=== PATIENT | male | born 1965 | race Caucasian/White ===

== ENCOUNTER 2017-08-03 13:12 | Inpatient (IN) | payer OTHER ==
[2017-08-03] VITALS (7 sets, daily range): BP systolic 127–160; BP diastolic 85–110
[~2017-08-03] VITALS: Ht 185.4 cm; Wt 105.2 kg
--- NOTE | ~2017-08-03 | EKG ---
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 : 1965 Requested By: Donovan Franklin Order Number: [id number] MD: Keon Thao Measurements Intervals [place] Rate: 85 P: 2 CA: 165 QRS: -24 QRSD: 101 T: -25 QT: 365 QTc: 434 Interpretive Statements Sinus rhythm Borderline left axis deviation Probable anteroseptal infarct, old Repol abnrm suggests ischemia, diffuse leads ST elevation, lateral leads, acute injury Baseline wander in lead(s) V4 No previous ECG available for comparison Electronically Signed On 08-07-2017 13:01:13 CDT by Keon Thao [email or web address] <ELECTRONICALLY SIGNED> By: Keon Thao MD, [facility] 08/07/17 1301 1407 1407 Keon Thao MD, [facility] /EPI
--- NOTE | ~2017-08-03 | HC ---
[facility] [place] [address] CONSULTATION Name: CINTHIA ROMANO Room #: 209-P [facility] IN M.R.#: [id number] Admission: 08/03/17 Attend Phys: Shane Whittaker MD Discharge: 08/05/17 Date of : 69 Report #: [id number] THIS REPORT FOR: //name// CC: Shane Whittaker HISTORY OF PRESENT ILLNESS: A 51-year-old male patient who I was asked to evaluate here in the Emergency Room. He initially presented with some chest pain. He drove himself over to the Emergency Room. No real associated symptoms. He is having 3 or 4 episodes of this since Tuesday, although denies any real change in exercise tolerance. He is not very active. Strong family history for coronary artery disease, mother had an event around age 50. The patient is 51. He does not take any blood pressure, cholesterol medicines. He believes there was a cholesterol check sometime in the last year. Denies PND, orthopnea. There has been no syncope or presyncope. He initially became pain free in the Emergency Room and then had pain and come back. The repeat EKG initially had showed some subtle ST abnormalities in inferior leads, but then there was a subtle ST elevation in 1 and aVL, less noted with worsening depression in V3 and V4. So somewhat of a posterolateral infarct pattern. Brought emergently to the catheterization lab after heparin bolus and Lipitor and aspirin were given. Minimal discomfort here in the catheterization lab. MEDICATIONS: He takes no current medications. PAST MEDICAL HISTORY: He has had bilateral hip replacements and has had a recent arthroscopy. No other real serious illnesses. No hypertension or hypercholesterolemia by history. SOCIAL HISTORY: He is with children. Minimal alcohol, no tobacco. 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 FAMILY HISTORY: Strongly positive for premature coronary disease. Mother had an event around age 50. REVIEW OF SYSTEMS: Essentially negative except for the intermittent hip pain and some occasional nocturia. PHYSICAL EXAMINATION: VITAL SIGNS: Blood pressure was 140/98, pulse was 80s and regular. HEENT: Eyes reveal xanthelasmas. Pharynx is clear. NECK: Shows preserved upstrokes without JVD or bruits. LUNGS: Clear. CARDIAC: Regular rate and rhythm, S1, S2. No murmur or gallop. ABDOMEN: Soft. No HSM or abdominal bruit. EXTREMITIES: Reveal no edema. Distal pulses were intact. NEUROLOGIC: Nonfocal. SKIN: Warm and dry without xanthoma or ulcer. MUSCULOSKELETAL: No gross joint deformity. [facility] [address] [place] [address] CONSULTATION Name: CINTHIA ROMANO Room #: 209-P [facility] IN [facility].#: [id number] Admission: 08/03/17 Attend Phys: Shane Whittaker MD Discharge: 08/05/17 Date of : [birth year] Report #: [id number] ASSESSMENT: 1. Acute posterolateral myocardial infarction (stuttering). 2. Suspected hypercholesterolemia. 3. Strong family history of premature coronary artery disease. 4. History of bilateral total hip replacement. RECOMMENDATIONS AND PLAN: We will proceed emergently to catheterization lab to delineate the anatomy and intervention as indicated. Risks, benefits, alternatives were discussed with the patient. We will proceed urgently. LABORATORY WORK: H and H are 15.7 and 46.7. Sodium 141, potassium 4.2, creatinine 1.0. LFTs appear to be normal. Troponin is 2.14. BNP is 371. <ELECTRONICALLY SIGNED> By: Joaquin Macedo MD, FACC 08/11/17 1539 1535 2221 Joaquin Macedo MD, FACC /nt
--- NOTE | ~2017-08-03 | CATHLAB ---
[facility] [place] [address] INVASIVE PROCEDURE REPORT Name: CINTHIA ROMANO Room #: 209-P DIS IN M.R.#: [id number] Admission: 08/03/17 Attend Phys: Russell Dee Discharge: 08/05/17 Date of : 69 Date of Service: 08/06/17 1310 Report #: [id number] THIS REPORT FOR: //name// APPROVED REPORT Study performed: 08/03/2017 14:29:40 Patient Details Patient Status: ED Room #: The patient is a 51 year-old male Event Personnel Joaquin Macedo Tool Pusher, Bam Ocasio RN RN, Haley Murillo Sandifer, David Monitor, Jae Palmer forestry foreman Performed Left Heart Cath w/or w/o Coronaries [id number] [facility] Aortogram Abdominal Peripheral Angio 239000 FRITZ Revasc AMI Total/Sub Single CIRC C9606 AMIREVSING Indication Unstable angina Procedure Narrative The Right Groin^ was infiltrated with 1% Lidocaine subcutaneous anesthesia. A PINNACLE 6FR Sheath #[id number] sheath was inserted into the RFA^. Coronary angiography was performed using coronary diagnostic catheters. The right coronary system was accessed and visualized with a JR4 catheter. The left coronary system was accessed and visualized with a JL4 catheter. The left ventricle was accessed and visualized with a PIGTAIL catheter. Left ventriculogram was performed in 30 degree projection. An aortogram of the abdominal aorta was performed. Closure device was deployed with a 6 Fr MYNX. The patient tolerated the procedure well and there were no complications associated with the procedure. There was no hematoma. Intraoperative Conscious Sedation Sedation start time: 14.52 Case end Time: 15, 20 Fentanyl 25 mcg Versed 1 mg Fluoro Time: 7.22 minutes Dose: 1488 mGy [facility] [place] [address] INVASIVE PROCEDURE REPORT Name: CINTHIA ROMANO Room #: 209-P [facility] IN M.R.#: [id number] Admission: 08/03/17 Attend Phys: Russell Dee Discharge: 08/05/17 Date of : 69 Date of Service: 08/06/17 1310 Report #: [id number] Contrast Type and Amount: Omnipaque 190 ml Hemodynamics The aortic pressure is 147/100 mmHg with a mean of 116 mmHg. The left ventricular pressure is 156/7 mmHg with a mean of mmHg. PCI Technique Lesion Percutaneous coronary intervention was performed on the mid circumflex artery segment. A LAUNCHER 6FR EBU 4 #[id number] Guide Catheter was used to engage the LCA ostium. A Luge Wire .014 x 182CM #[id number] Interventional Guidewire was used to cross the lesion. BALLOON DILATION A Balloon catheter Sprinter OTW 3.0 x 15 #[id number] was inserted and inflated up to 10.00atm for 21seconds. Additional Inflation: 12.00atm for 20seconds. STENT DEPLOYMENT A drug-eluting stent RESOLUTE OTW 3.0 X 15 #[id number] was inserted and inflated up to 13.00atm for 38seconds. Additional Inflation: 18.00atm for 23seconds. Conclusion #1 successful PTCA stent of the proximal circumflex artery moderate sized infarct vessel 99% to 0% with a 30 by 15 resolute drug-eluting stent postdilated 3.3 mm religious of normal KENYA grade 3 flow #2 left main free of disease giving rise to LAD and circumflex #3 the LAD is moderately disease 4050% proximal lesion off the left main and then a mid vessel lesion of 60-70% (will follow) extends to the apex with mild disease #4 large dominant right coronary artery with no occlusive disease #5 normal left ventricular size with subtle lateral wall leg EF 50-55% #6 normal abdominal aorta no evidence of aneurysm normal caliber single bilateral renal arteries and iliac system widely patent Recommendations and plan: Patient is markedly improved hemodynamically stable. Pain-free we'll transport to CCU to follow post stent/infarct protocol. Continue dual antiplatelet therapy. [facility] [address] [place] [address] INVASIVE PROCEDURE REPORT Name: CINTHIA ROMANO Room #: 209-P [facility] IN M.R.#: [id number] Admission: 08/03/17 Attend Phys: Russell Dee Discharge: 08/05/17 Date of : 69 Date of Service: 08/06/17 1310 Report #: [id number] Integrilin drip to be maintained for 2 bottles. Minx closure device utilized without any groin complication. Follow post stent protocol <ELECTRONICALLY SIGNED> By: Joaquin Macedo MD, FACC 08/06/171309 09 09 Joaquin Macedo MD, FACC /INF
--- NOTE | ~2017-08-03 | D ---
[facility] [place] [address] DISCHARGE SUMMARY Name: CINTHIA ORMANO Room #: 209-P [facility] IN M.R.#: [id number] Admission: 08/03/17 Attend Phys: Shane Whittaker MD Discharge: 08/05/17 Date of : 69 Report #: [id number] THIS REPORT FOR: //name// CC: Shane Whittaker DATE OF SERVICE: 08/05/2017 FINAL DIAGNOSES: 1. ST segment elevation myocardial infarction. 2. Coronary artery disease. 3. Hypertension. 4. Dyslipidemia. PROCEDURES: Cardiac catheterization. HOSPITAL COURSE: The patient was admitted with chest pain and studies revealing ST segment elevation myocardial infarction. He was taken to the lab head by Dr. Macedo and a stent placed in, I believe, circumflex. There was also noted 60% LAD lesion that will be monitored and managed as an outpatient, had no other interval complications and was treated medically. PHYSICAL EXAMINATION: On the day of discharge: GENERAL: He was awake and alert. VITAL SIGNS: Stable. Blood pressure was ranging 128/81-144/95. LUNGS: Clear. HEART: Regular. ABDOMEN: Soft, normoactive bowel sounds. EXTREMITIES: No edema. DISPOSITION: He will be discharged to home with cardiac diet. ACTIVITY: As tolerated. Follow up with Dr. Whittaker in August as scheduled and Dr. Macedo in 1-2 weeks. Medications will be aspirin 325 mg a day, Lipitor 80 mg a day, Cozaar 100 mg daily, Toprol-XL 50 mg a day and Brilinta 90 mg twice a day. <ELECTRONICALLY SIGNED> By: Gerardo Carter MD 08/09/17 0948 0931 1004 Gerardo Carter MD /nt
--- NOTE | ~2017-08-03 | H ---
[facility] [place] [address] HISTORY AND PHYSICAL Name: CINTHIA ROMANO Room #: 209-P ADM IN M.R.#: [id number] Admission: 08/03/17 Attend Phys: Shane Whittaker MD Discharge: Date of : 69 Report #: [id number] THIS REPORT FOR: //name// CC: Shane Whittaker DATE OF SERVICE: 08/03/2017 CHIEF COMPLAINT: Chest pain. HISTORY OF PRESENT ILLNESS: The patient is a 51-year-old gentleman who presented to the Emergency Room with chest pain. He has had intermittent episodes of chest pain lasting about 10 minutes for the last 2 days. Pain is in the center of his chest with radiation to the left arm. He denied any associated nausea, diaphoresis or shortness of breath. He has had no prior symptoms. Lab and EKG in the ER is consistent with acute myocardial infarction and yesterday he was taken emergently to the cemetery laborer by Dr. Macedo. PAST MEDICAL HISTORY: None. PAST SURGICAL HISTORY: None. FAMILY HISTORY: Noncontributory. SOCIAL HISTORY: No chronic alcohol or tobacco use. ALLERGIES: None. MEDICATIONS: None. REVIEW OF SYSTEMS: Prior to this, he was denying any headache, chest pain, shortness of breath, abdominal pain, nausea, vomiting, diarrhea, constipation, dysuria or syncope. OBJECTIVE: VITAL SIGNS: Temperature 36.8, pulse ____, respirations 18, blood pressure 153/105. GENERAL: He is awake and alert, in no distress. HEAD AND NECK: Unremarkable. LUNGS: Clear. HEART: Regular. ABDOMEN: Soft and normoactive bowel sounds. EXTREMITIES: No edema. NEUROLOGIC: Intact. LAB: Reviewed. I discussed the findings with Dr. Macedo. [facility] [address] [place] [address] HISTORY AND PHYSICAL Name: CINTHIA ROMANO Room #: 209-P ADM IN M.R.#: [id number] Admission: 08/03/17 Attend Phys: Shane Whittaker MD Discharge: Date of : 69 Report #: [id number] ASSESSMENT: 1. Acute myocardial infarction with ST segment elevation. 2. Coronary artery disease. 3. Hypertension. 4. Dyslipidemia. PLAN: At this point, medical management will continue and we will follow recommendations and lead of Dr. Macedo. <ELECTRONICALLY SIGNED> By: Gerardo Carter MD 08/05/17 0928 0938 0956 Gerardo Carter MD /nt
--- NOTE | ~2017-08-03 | EKG ---
[place] [address] [facility] [place] [address] ELECTROCARDIOGRAM REPORT Name: CINTHIA ROMANO Room #: 209-P [facility] IN M.R.#: [id number] Admission: 08/03/17 Attend Phys: Shane Whittaker MD Discharge: 08/05/17 Date of : 69 Report #: [id number] THIS REPORT FOR: //name// 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 : 1965 Requested By: Donovan Franklin Order Number: [id number] MD: Keon Thao Measurements Intervals [place] Rate: 88 P: -13 AR: 170 QRS: 55 QRSD: 96 T: 78 QT: 374 QTc: 453 Interpretive Statements Sinus rhythm Borderline low voltage, extremity leads Anteroseptal infarct, old No previous ECG available for comparison Electronically Signed On 08-07-2017 12:56:42 CDT by Keon Thao [email or web address] <ELECTRONICALLY SIGNED> By: Keon Thao MD, [facility] 08/07/17 1256 1319 1319 Keon Thao MD, [facility] /EPI
[2017-08-03 13:42] LABS: ABSOLUTE NEUTROPHILS 4.6 thou/uL (1.4-8.2); BASOPHILS 0.6 % (0.0-2.0); EOSINOPHILS 0.5 % (0.0-3.0); HEMATOCRIT 46.7 % (42.0-52.0); HEMOGLOBIN 15.7 gm/dL (14.0-18.0); LYMPHOCYTES 32.1 % (24.0-44.0); MCH 27.2 pg (26.0-34.0); MCHC 33.7 g/dL (28.0-37.0); MCV 80.6 fL (80.0-100.0); MONOCYTES 7.2 % (1.0-8.0); PLATELET COUNT 232 thou/uL (150-400); POLYS 59.6 % (36.0-66.0); RBC 5.79 mil/uL (4.50-6.00); RDW 14.2 % (10.5-14.5); WBC 7.8 thou/uL (4.0-11.0)
[2017-08-03 13:54] LABS: CALCIUM 9.4 mg/dL (8.5-10.1); POTASSIUM 4.2 mmol/L (3.5-5.1)
[2017-08-03 14:02] LABS: MAGNESIUM 2.1 mg/dL (1.8-2.4); TOTAL BILIRUBIN 0.7 mg/dL (<0.1-1.0); TOTAL PROTEIN 7.6 g/dL (6.4-8.2)
[2017-08-03 14:05] LABS: TROPONIN-I 2.14 ng/mL (<0.06)
[2017-08-04 00:10] VITALS: BP 134/98
[2017-08-04 02:41] LABS: CHOLESTEROL 191 mg/dL (<200); HDL CHOLESTEROL 32 mg/dL (>40); LDL CHOLESTEROL 103 mg/dL (<100); TRIGLYCERIDE 283 mg/dL (<150); VLDL 57 mg/dL (<40)
[2017-08-04 02:42] LABS: SERUM ASSESSMENT Clear
[2017-08-04 04:47] VITALS: BP 135/94
[2017-08-04 07:58] VITALS: BP 153/105
[2017-08-04 11:22] VITALS: BP 127/85
[2017-08-04 16:44] VITALS: BP 128/81
[2017-08-04 19:17] VITALS: BP 133/82
[2017-08-05 05:20] VITALS: BP 120/76
[2017-08-05 08:03] VITALS: BP 141/95
[2017-08-05] MEDS ORDERED: ATORVASTATIN CA40 MG PO (08:45)
[2017-08-05] MEDS ORDERED: PLAVIX 75 MG TA75 M1 PO (08:45)
[2017-08-05] MEDS ORDERED: METOPROLOL SUCC50 MG PO (08:45)
[2017-08-05] MEDS ORDERED: COZAAR100 MG PO (08:45)
[2017-08-05] MEDS ORDERED: ASPIRIN325 PO ×2 (08:45→08:49)
[2017-08-05] MEDS ORDERED: BRILINTA90 MG PO (08:49)
[2017-08-05 10:17] VITALS: BP 144/95
== END 2017-08-05 11:20 | disposition home or self-care (01) | DRG 247 ==
LOC: ER 13:12 → 2N 14:25 → EROBS 14:25 → 2N 14:33 → ENTRNSPT 08-05 10:51 → EDTRNSPTSTS 08-05 11:04 → 2N 08-05 11:20
PROVIDERS: Emergency Medicine; Internal Medicine Cardiovascular Disease
DX: I21.3 ST elevation (STEMI) myocardial infarction of unspecified site (principal); I25.10 Atherosclerotic heart disease of native coronary artery without angina pectoris; Z96.643 Presence of artificial hip joint, bilateral; I10 Essential (primary) hypertension; E78.5 Hyperlipidemia, unspecified; Z79.82 Long term (current) use of aspirin; Z79.899 Other long term (current) drug therapy; Z28.21 Immunization not carried out because of patient refusal; Z82.49 Family history of ischemic heart disease and other diseases of the circulatory system
CPT/HCPCS: 10194

== ENCOUNTER → 2020-03-24 | Outpatient (CLI) | payer BC, OTHER ==
[~2020-03-24] MED LIST: ASPIRIN325 PO; ATORVASTATIN CA40 MG PO; BRILINTA90 MG PO; COZAAR100 MG PO; METOPROLOL SUCC50 MG PO; PLAVIX 75 MG TA75 M1 PO
== END ==
LOC: SJCVCIMAG 08:16
PROVIDERS: ATTEND Internal Medicine Cardiovascular Disease
DX: I25.10 Atherosclerotic heart disease of native coronary artery without angina pectoris (principal); I49.3 Ventricular premature depolarization; I10 Essential (primary) hypertension; E78.5 Hyperlipidemia, unspecified; Z98.61 Coronary angioplasty status

== ENCOUNTER → 2021-04-28 | Outpatient (CLI) | payer BC, OTHER | LOC: SJCVCIMAG 10:07 | PROVIDERS: ATTEND Internal Medicine Cardiovascular Disease | DX: I25.10 Atherosclerotic heart disease of native coronary artery without angina pectoris (principal); E78.5 Hyperlipidemia, unspecified; E78.00 Pure hypercholesterolemia, unspecified; I25.2 Old myocardial infarction; Z82.49 Family history of ischemic heart disease and other diseases of the circulatory system; Z95.5 Presence of coronary angioplasty implant and graft; Z72.89 Other problems related to lifestyle; Z79.82 Long term (current) use of aspirin; Z79.899 Other long term (current) drug therapy ==